=== PATIENT | female | born 1995 | race Caucasian/White ===

== ENCOUNTER → 2023-12-19 | Outpatient (CLI) | payer OTHER | LOC: COL.RAD 08:00 | DX: M51.16 Intervertebral disc disorders with radiculopathy, lumbar region (principal); M47.26 Other spondylosis with radiculopathy, lumbar region; M48.061 Spinal stenosis, lumbar region without neurogenic claudication; M51.17 Intervertebral disc disorders with radiculopathy, lumbosacral region; M48.07 Spinal stenosis, lumbosacral region; M86.8X8 Other osteomyelitis, other site ==